=== PATIENT | female | born 1995 | race Caucasian/White ===

== ENCOUNTER 2025-04-03 14:12 | Emergency (ER) | payer BC, SELFPAY ==
[2025-04-03 14:18] VITALS: BP 119/47; PULSE 78; TEMP 36.6; O2SAT 98
[2025-04-03 14:41] LABS: Add Urine Microscopic? NO
[2025-04-03 14:45] LABS: Glucose Urine UA Negative (Normal); Nitrate Urine Negative (Negative); Specific Gravity, Urine 1.019 (1.005-1.030)
--- NOTE | 2025-04-03 14:45 | US_ITS ---
WS: [id number] US transvaginal [id number] HISTORY: llq pain, hx of ovarian torsion COMPARISON: None available. Uterus: 5.6 cm x 4.6 cm x 2.9 cm. Normal size retroflexed uterus. No fibroid or mass. Endometrium: 1.1 cm. Poorly visualized. Right ovary: Not visualized. Left ovary: 5.6 cm x 5.1 cm x 5.4 cm. Enlarged LEFT ovary. There is a complex cystic mass with lacy reticulations and septations and through transmission associated with the ovary. Very little normal ovarian tissue noted surrounding the complex cystic mass. No free fluid in the cul-de-sac. US/US transvaginal [id number] IMPRESSION: 1. Hemorrhagic cyst LEFT ovary. Hemorrhagic cyst involves nearly the entire ov don with minimal normal rim of ovarian tissue identified. Hemorrhagic cyst massiel ures 5.6 x 5.1 x 5.4 cm. No ovarian torsion identified. The visualized rim of o varian tissue contains normal vascularity. 2. No free fluid. 3. RIGHT ovary not identified.
[2025-04-03 14:46] LABS: Hematocrit 40.4 % (36-47); Hemoglobin 13.40 g/dL (11.27-16.99); Mean Corpuscular HGB Conc 33.2 g/dL (30-55); Mean Corpuscular Hemoglobin 28.2 pg (27-33); Mean Corpuscular Volume 85.1 fl (85-98); Nucleated Red Blood Cells % 0 %; Platelet Count 300 10^3/cmm (157-399); Red Blood Count 4.75 10^6/uL (3.85-5.65); White Blood Count 10.78 10^3/uL (3.29-11.43)
[2025-04-03 14:48] LABS: Charge for UA Resulting for Rev
[2025-04-03] MEDS: ondansetron 2 mg/ML SDV 2 mL 4 MG IVP (14:50)
--- NOTE | 2025-04-03 14:51 | ED_ITS ---
HPI - Abdominal Pain 2 General: Chief Complaint: Abdominal Pain Stated Complaint: abd pain Time Seen by Provider: 04/03/25 14:23 Source: patient Mode of arrival: ambulatory Limitations: no limitations History of Present Illness: Patient is a 29-year-old female who presents emergency department complaining of left lower quadrant abdominal pain for the past 3 days. Has a history of ovarian torsion, this was 10 years ago and patient states she had surgery at [facility] but did not have removal of ovary or fallopian tube and states she still has all of her female organs. She reports having the pain similar in the past with ruptured ovarian cysts, but this is much worse and much more constant. Pain has been constant for 3 days, radiates to her rectal region. Has been taking ibuprofen with no relief. Reports possibility of . She is not reporting any vaginal bleeding or discharge, no urinary symptoms, no rectal bleeding, no vomiting but does feel nauseous. No syncope, lightheadedness, dizziness, chest pain, or shortness of breath. She states the pain is made worse with putting pressure to her left lower quadrant but when she lets go it makes the pain much worse. Vital stable at this time, though she does appear uncomfortable secondary to pain. Also reports a history of dysfunctional uterine bleeding and has seen [employer] SUPERVISOR for this, says she has been diagnosed with PCOS in the past but has been told by other doctors that she does not have this condition. MD elicited complaint: abdominal pain Pertinent past history: other (ovarian torsion) Onset (ago): day(s) (3) Pain Consistency: constant Location: LLQ Severity: severe Quality: cramping Radiation: other (rectum) Relieving factors: other (pressure on abdomen) Associated Symptoms: Reports nausea; Denies bloating, change in stool character, chills, constipation, diarrhea, dysuria, fever(s), hematochezia, hematuria and vomiting Treatments prior to arrival: NSAIDs Related Data Home Medications ?Medication ?Instructions ?Recorded ?Confirmed sertraline 100 mg tablet 100 mg PO QPM 04/03/2504/03 Previous Rx's ?Medication ?Instructions ?Recorded hydrocodone 5 mg-acetaminophen 325 1 tab PO Q8H PRN pa in #15 tabs 04/03/25 mg tablet ondansetron 4 mg disintegrating 4 mg PO TID PRN nausea and 04/03/25 tablet vomiting #30 tabs Allergies Allergy/AdvReac Type Severity Reaction Status Date / Time Sulfa (Sulfonamide Allergy Unknown Verified 04/03/25 14:22 Antibiotics) Review of Systems 2 General: Reports: 10 or more systems reviewed and unremarkable except in HPI and below Const: Denies: fever(s), chills, change in appetite, change in weight or diaphoresis ENMT: Denies: throat pain or hoarseness Card: Denies: chest pain, palpitations or lightheadedness Resp: Denies: dyspnea, productive cough or wheezing GI: Reports: abdominal pain, nausea and rectal pain; Denies: vomiting, diarrhea, constipation, bloating, change in stool character or hematochezia : Reports: irregular period; Denies: flank pain, difficulty voiding, dysuria, urinary frequency, urinary urgency, hematuria, vaginal bleeding or vaginal discharge Musc: Denies: neck pain or back pain Skin/Breast: Denies: rash or new lesions Neuro: Denies: headache(s) or dizziness Physical Exam 2 Const: COMMON NORMALS: patient oriented x3, alert and well nourished G ENERAL APPEARANCE: cooperative NUTRITIONAL APPEARANCE: obese O RIENTATION/CONSCIOUSNESS: Yes awake OTHER: nontoxic appearing, in mild distress from pain Neck/C-Spine: COMMON NORMALS: full ROM, supple and no meningeal signs Resp: COMMON NORMALS: normal respiratory effort, No retractions, No use of accessory muscles and clear to auscultation bilaterally AUSCULTATION: clear to auscultation bilaterally, no crackles, no rales, no rhonchi and no wheezes Cardio: COMMON NORMALS: regular rate, regular rhythm, No gallops present (Cardio), No clicks present (Cardio), No murmurs present (Cardio) and No rub (Cardio) RATE: regular rate RHYTHM: regular rhythm GI: COMMON NORMALS: Normal to inspection, nondistended, normoactive bowel sounds present, Soft to palpation, No hepatosplenomegaly present and no masses INSPECTION: Yes central obesity AUSCULTATION: Yes normoactive bowel sounds PALPATION: Yes Soft to palpation and Yes No hepatosplenomegaly present R ECTAL EXAM: deferred OTHER: Reproducible left lower quadrant tenderness to palpation with positive rebound tenderness : COMMON NORMALS: Yes no CVA tenderness BLADDER/KIDNEY EXAM: Yes no CVA tenderness Back/Pelvis: COMMON NORMALS: no CVA tenderness Extremity: COMMON NORMALS: normal to inspection and full ROM Neuro: COMMON NORMALS: patient oriented x3, moves all extremities, no focal motor deficits and no sensory deficits noted SENSORIUM/ORIENTATION: Yes alert MENINGEAL SIGNS: Yes no meningeal signs Psych: COMMON NORMALS: mental status grossly normal, cooperative and speech normal SPEECH: Yes normal speech Skin: COMMON NORMALS: no rashes or lesions noted GENERAL SKIN EXAM: no rashes or lesions noted Course 2 Vital Signs: Vital signs: Vital Signs Temperature 97.9 F 04/03/25 14:18 Pulse Rate 81 04/03/25 17:20 Respiratory Rate 16 04/03/25 16:40 Blood Pressure 127/72 04/03/25 17:20 Pulse Oximetry 96 04/03/25 17:20 Oxygen Delivery Me thod Room Air 04/03/25 14:18 MDM - Abdominal Pain Medical Decision Making Patient present with left lower quadrant abdominal pain for 3 days, history of ovarian torsion. Reporting nausea but no vomiting, no fevers or chills or other concerning symptoms. Vitals stable throughout ED stay, reproducible tenderness to palpation to left lower quadrant. Lab work evaluation unremarkable, transvaginal ultrasound showing hemorrhagic cyst to left ovary but there is no evidence of torsion. Her is negative. I spoke to Dr. Gaitan, [employer], who states he will see the patient in the office tomorrow. Pain controlled here with morphine, will send pain medications to pharmacy and she is given strict return precautions. Overall stable for discharge at this time. Lab Data 04/03/25 14:30 04/03/25 14:30 Labs/Radiology: Radiology Impressions Transvaginal US 04/03/25 14:45 IMPRESSION: 1. Hemorrhagic cyst LEFT ovary. Hemorrhagic cyst involves nearly the entire ovary with minimal normal rim of ovarian tissue identified. Hemorrhagic cyst measures 5.6 x 5.1 x 5.4 cm. No ovarian torsion identified. The visualized rim of ovarian tissue contains normal vascularity. 2. No free fluid. 3. RIGHT ovary not identified. Abdomen/Pelvis CT 04/03/25 15:59 IMPRESSION: 1. No acute findings in the abdomen or pelvis. 2. Left ovarian cyst measuring 4.5 x 4.9 x 5 point 4 cm. This can be better evaluated with a dedicated pelvic ultrasound if clinically warranted. 3. Mild hepatic steatosis and hepatomegaly. Laboratory Results WBC 10.78 10^3/uL (3.29-11.43) 04/03/25 14:30 RBC 4.75 10^6/uL (3.85-5.65) 04/03/25 14:30 Hgb 13.40 g/dL (11.27-16.99) 04/03/25 14:30 Hct 40.4 % (36-47) 04/03/25 14:30 MCV 85.1 fl (85-98) 04/03/25 14:30 MCH 28.2 pg (27-33) 04/03/25 14:30 MCHC 33.2 g/dL (30-55) 04/03/25 14:30 RDW 12.9 % (12.1-15.1) 04/03/25 14:30 Plt Count 300 10^3/cmm (157-399) 04/03/25 14:30 MPV 9.8 fL (7.4-10.4) 04/03/25 14:30 Neut % (Auto) 59.9 % 04/03/25 14:30 Lymph % (Auto) 31.9 % 04/03/25 14:30 [place] % (Auto) 6.3 % 04/03/25 14:30 Eos % (Auto) 1.2 % 04/03/25 14:30 Baso % (Auto) 0.3 % 04/03/25 14:30 Neut # (Auto) 6.46 10^3/uL (1.8-7.7) 04/03/25 14:30 Lymph # (Auto) 3.4 10^3/uL (0.8-4.8) 04/03/25 14:30 [place] # (Auto) 0.7 10^3/uL (0.2-0.9) 04/03/25 14:30 Eos # (Auto) 0.1 10^3/uL (0.0-0.8) 04/03/25 14:30 Baso # (Auto) 0.0 10^3/uL (0.0-0.1) 04/03/25 14:30 Nucleated RBC % (auto) 0 % 04/03/25 14:30 Nucleated RBCs # 0.0 /100WBC 04/03/25 14:30 Sodium 137 mmol/L (136-145) 04/03/25 14:30 Potassium 3.6 mmol/L (3.5-5.1) 04/03/25 14:30 Chloride 101 mmol/L (98-107) 04/03/25 14:30 Carbon Dioxide 23 mmol/L (22-29) 04/03/25 14:30 Anion Gap 16.6 (5-19) 04/03/25 14:30 BUN 18 mg/dL (6-20) 04/03/25 14:30 Creatinine 0.6 mg/dL (0.5-0.9) 04/03/25 14:30 GFR Calculation 116.6 mL/min (90-130) 04/03/25 14: Glucose 88 mg/dL (65-115) 04/03/25 14:30 Calculated Osmolality 285 mOsm/kg (285-295) 04/03/25 14:30 Calcium 9.7 mg/dL (8.5-10.5) 04/03/25 14:30 Total Bilirubin 0.3 mg/dL (0.15-1.2) 04/03/25 14:30 AST 13 U/L (0-32) 04/03/25 14:30 ALT 17 U/L (0-33) 04/03/25 14:30 Alkaline Phosphatase 60 U/L (35-105) 04/03/25 14:30 Total Protein 8.4 g/dL (6.6-8.7) 04/03/25 14:30 Albumin 4.6 g/dL (3.5-5.2) 04/03/25 14:30 Globulin 3.8 g/dL (1.3-4.6) 04/03/25 14:30 Lipase 22 U/L (13-60) 04/03/25 14:30 HCG, Qual Negative (Negative) 04/03/25 14:30 Urine Color Yellow (Yellow) 04/03/25 14:28 Urine Appearance Clear (CLEAR) 04/03/25 14: Urine pH 6.5 (5-7) 04/03/25 14:28 Ur Specific [place] 1.019 (1.005-1.030) 04/03/25 14: Urine Protein Negative (Negative) 04/03/25 14: Urine Glucose (UA) Negative (Normal) 04/03/25 14:28 Urine Ketones Negative (Negative) 04/03/25 14:28 Urine Blood Negative (Negative) 04/03/25 14:28 Urine Nitrate Negative (Negative) 04/03/25 14:28 Urine Bilirubin Negative (Negative) 04/03/25 14:28 Urine Urobilinogen 0.2 mg/dL (Negative) 04/03/25 14:28 Ur Leukocyte Esterase Negative (Negative) 04/03/25 14:28 Amorphous Sediment Not Reportable 04/03/25 14:40 All radiology interpretation(s) finalized by discharge Discharge Plan Discharge Patient Disposition: Home Clinical Impression: Hemorrhagic cyst of left ovary Condition: Stable Prescriptions: New hydrocodone-acetaminophen 5-325 mg tablet 1 tab PO Q8H PRN (Reason: pain) Qty: 15 0RF ondansetron 4 mg tablet,disintegrating 4 mg PO TID PRN (Reason: nausea and vomiting) Qty: 30 0RF No Action sertraline 100 mg tablet 100 mg PO QPM Discharge Orders: Discharge ED (Routine); Ordered 04/03/25 Ordered By: Bharat Lee Patient Instructions: Opioid Safety, Pain Management, Patient Portal & Liz Instructions Activity Restrictions/Additional Instructions: Hemorrhagic Ovarian Cyst Discharge Diagnosis: Large left hemorrhagic ovarian cyst. Disposition: Discharged with outpatient referral to obstetrics/gynecology. Summary of Hospital Course: Patient presented with acute pelvic pain. Imaging confirmed a large hemorrhagic ovarian cyst. No evidence of hemodynamic instability, peritonitis, or other indications for urgent surgical intervention. Pain controlled with oral analgesia. Discharge Instructions: - Activity: Limit strenuous activity and avoid heavy lifting for the next 1-2 weeks. Ambulate as tolerated. Sexual intercourse may be resumed when pain-free. - Pain Management: [place] (hydrocodone 5 mg/acetaminophen 325 mg) prescribed for pain. Use the lowest effective dose for the shortest duration possible. Do not exceed 4 grams acetaminophen daily. Avoid other acetaminophen-containing products. If pain is mild, consider acetaminophen or NSAIDs alone, unless contraindicated. - Warning Signs: Return to the emergency department immediately for: - Severe, worsening abdominal pain - Dizziness, lightheadedness, fainting - Signs of heavy vaginal bleeding - Fever, chills, or signs of infection - Nausea/vomiting preventing oral intake - Abdominal distension or inability to urinate - Follow-Up: Outpatient gynecology follow-up is recommended within 1-2 weeks for reassessment and discussion of ongoing management. Serial pelvic ultrasound may be considered to monitor cyst resolution, though there is no consensus on optimal frequency. - Recurrence Prevention: For patients with recurrent hemorrhagic cysts, hormonal suppression (e.g., combined oral contraceptives) may be considered in consultation with gynecology. - Special Considerations: If there is a personal or family history of bleeding disorders, further hematologic evaluation may be warranted. - Fertility: Most hemorrhagic cysts are benign and do not impact fertility. Surgical intervention may be considered for persistent, symptomatic, or very large cysts. - Medication Precautions: Avoid alcohol and sedating medications while taking [place]. Do not drive or operate heavy machinery if drowsy. Patient Education: Hemorrhagic ovarian cysts are common and typically resolve spontaneously. Conservative management is safe in the absence of hemodynamic compromise or other complications. Surgery is reserved for unstable patients or those with persistent symptoms. Contact Information: For questions or concerns, contact the gynecology clinic or return to the emergency department for urgent issues. Print Language: Vietnamese Coding Level of Care Code ED Retrieval Specialist for Gela Crowley
[2025-04-03 14:52] VITALS: RESP 18
[2025-04-03] MEDS: morphine 4 mg/mL SDV 1 mL IVP (14:52)
[2025-04-03 15:02] VITALS: BP 127/82; PULSE 81; O2SAT 98
[2025-04-03 15:05] LABS: Alanine Aminotransferase 17 U/L (0-33); Albumin Level 4.6 g/dL (3.5-5.2); Alkaline Phosphatase 60 U/L (35-105); Anion Gap 16.6 (5-19); Aspartate Amino Transferase 13 U/L (0-32); Blood Urea Nitrogen 18 mg/dL (6-20); Calcium 9.7 mg/dL (8.5-10.5); Carbon Dioxide 23 mmol/L (22-29); Chloride 101 mmol/L (98-107); Creatinine Clr Calc Pharmacy 160.5822; Globulin 3.8 g/dL (1.3-4.6); Glucose 88 mg/dL (65-115); HCG, Serum Qual Negative (Negative); Lipase 22 U/L (13-60); Osmolality Calculated 285 mOsm/kg (285-295); Potassium 3.6 mmol/L (3.5-5.1); Sodium 137 mmol/L (136-145); Total Protein 8.4 g/dL (6.6-8.7)
--- NOTE | 2025-04-03 15:59 | CTR_ITS ---
PROCEDURE INFORMATION: Exam: CT Abdomen And Pelvis With Contrast Exam date and time: 04/03/2025 4:13 PM Age: 29 years old Clinical indication: Abdominal pain; Prior surgery; Surgery date: 6+ months; Surgery type: Cyst drainage/removal; Additional info: Severe llq pain, hemorrhagic cyst TECHNIQUE: Imaging protocol: Computed tomography of the abdomen and pelvis with contrast. Radiation optimization: All CT scans at this facility use at least one of these dose optimization techniques: automated exposure control; mA and/or kV adjustment per patient size (includes targeted exams where dose is matched to clinical indication); or iterative reconstruction. Contrast material: OMNIPAQUE 350; Contrast volume: 100 ml; Contrast route: INTRAVENOUS (IV); COMPARISON: US transvaginal [id number] 04/03/2025 3:20 PM RADIATION DOSE METRICS: Total DLP (mGy-cm): 1057.33 FINDINGS: Liver: Mild hepatic steatosis and hepatomegaly. No significant focal hepatic lesions. Gallbladder and biliary ducts: Normal. No calcified stones. No ductal dilation. Pancreas: Normal. No ductal dilation. Spleen: Normal. No splenomegaly. Adrenal glands: Normal. No mass. Kidneys and ureters: No suspicious renal lesions. No hydronephrosis or nephrolithiasis. No ureteral stones. Stomach and bowel: Normal caliber of the bowel without evidence of obstruction. No focal bowel wall thickening or inflammation. Appendix: Unremarkable. Intraperitoneal space: Unremarkable. No free air. No significant fluid collection. Vasculature: Unremarkable. No abdominal aortic aneurysm. Lymph nodes: Unremarkable. No enlarged lymph nodes. Urinary bladder: Urinary bladder unremarkable. Reproductive: Uterus within normal limits. Left ovarian cyst measuring 4.5 x 4.9 x 5 point 4 cm. Bones/joints: Unremarkable. No acute fracture. Soft tissues: Unremarkable. CT/CT abdomen pelvis w con* [id number] IMPRESSION: 1. No acute findings in the abdomen or pelvis. 2. Left ovarian cyst measuring 4.5 x 4.9 x 5 point 4 cm. This can be better evaluated with a dedicated pelvic ultrasound if clinically warranted. 3. Mild hepatic steatosis and hepatomegaly.
[2025-04-03 16:07] VITALS: RESP 16
[2025-04-03] MEDS: morphine 4 mg/mL SDV 1 mL 2 MG IVP (16:07)
[2025-04-03] MEDS: iohexol 350 mg/mL 500 mL Btl (per mL) IV (16:18)
[2025-04-03 16:40] VITALS: PULSE 73; RESP 16; O2SAT 97
[2025-04-03 17:20] VITALS: BP 127/72; PULSE 81; O2SAT 96
--- NOTE | 2025-04-04 07:35 | DCPLANNER ---
messaged [facility] f/u
== END 2025-04-03 17:22 | disposition home or self-care (01) ==
PROVIDERS: Emergency Medicine; Emergency Provider Physician Assistant
DX: N83.202 Unspecified ovarian cyst, left side (principal)
CPT/HCPCS: 36415; 74177; 76830; 80053; 81003; 83690; 84703; 85025; 96374; 96375; 96376; 99285; J2270; J2405

== ENCOUNTER → 2025-04-04 11:40 | Outpatient (BNVA) | payer BC, SELFPAY | PROVIDERS: Visit Provider Obstetrics & Gynecology | DX: Z12.4 Encounter for screening for malignant neoplasm of cervix (principal) | CPT/HCPCS: 87624 ==

== ENCOUNTER 2025-04-07 18:56 | Observation (INO) | payer BC, SELFPAY ==
--- OUTSIDE RECORDS SUMMARY | 2025-04-05 18:30 | XMS_ITS | Encounter Summary ---
Author Organization [facility] Address [address] [place] [address] Care Team Providers Care Associate Professor Of Counseling Name Role Phone Robin Perla MD Primary Care Provider [phone] Reason for Visit * Reason Comments Abdominal Pain Patient states abdom inal pain x 5 days. States she was supposed to have a surgery in [place] but was unable to have surgery today due to hospital being under staffed was told to go to [facility] in [place]. * Auth/Cert (Routine) Specialty Diagnoses / Procedures Referred By Jan ruggiero Referred To Contact Emergency Medicine [facility] Emergency Department [address] [place] [id number] Phone: tel: fax: Referral ID Status Reason Start Date Expiration Date Visits Re quested Visits Authorized [id number] 1 1 Encounter Details Date Type Department Care Team (Late st Contact Info) Description 04/05/2025 6:30 PM CDT - 04/05/2025 9:[address] [facility] Emergency Department [address] [place] [phone] Laureano Warren MD [address] [place] [address] Hemorrhagic cyst of left ovary (Primary Dx) Discharge Disposition: Home or Self Care Social History Tobacco Use Types Packs/Day Years Used Date Smoking Tobacco: Never Smokeless Tobacco: Never Alcohol Use Standard Drinks/Week Comments No 0 (1 standard drink = 0.6 oz pur e alcohol) Food Insecurity Answer Date Recorded Do you find you are eating l ess than you should because you can t pay for food? No 04/05/2025 Transportation Needs Answer Date Record ed Have you gone without health care because you didn t have a way to get there? 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 No 2024 Housing Stability Answer Date Recorded Do you worry you won t have a steady place to sleep or struggle to pay rent or mortgage? No 04/05/2025 Utility Needs Answer Date Recorded Do you have difficulty payin g for utility costs (electric, water or gas bills)? No 04/05/2025 Medication Needs Answer Date Recorded Have you skipped taking medi cation due to cost or worry you can t afford new medications? No 04/05/2025 Feeling Safe Answer Date Recorded Are you in a relationship wi th someone who hurts you emotionally and/or physically? 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 Gender Identity Not on file Sexual Orientation Not on file documented as of this encounter Last Filed Vital Signs Vital Sign Reading Time Taken Comments Blood Pressure 132/88 04/05/2025 4:13 PM CDT Pulse 84 04/05/2025 4:13 PM CDT Temperature 36.6 C (97.8 F) 04/05/2025 4:13 PM CDT Respiratory Rate 20 04/05/2025 4:13 PM CDT Oxygen Saturation 98% 04/05/2025 4:13 PM CDT Inhaled Oxygen Concentration - - Weight 112 kg (247 lb) 04/05/2025 4:13 PM CDT Height 157.5 cm (5' 2 ) 04/05/2025 4:13 PM CDT Body Mass Index 45.18 04/05/2025 4:13 PM CDT documented in this encounter Discharge Instructions * Discharge Instructions* Laureano Warren MD - 04/05/2025 9:05 PM CDT Things to remember after leaving the Emergency Department Keep your follow-up appointment on Tuesday with your rn physician office for surgery. Stop hydrocodone. Start morphine. Return if any concerns, uncontrolled pain, fevers, passing out etc. Return to the Emergency Department if your symptoms worsen, if they fail to improve as expected or if you have any concerns and can not reach your outpatient health care provider. Read all of your discharge instructions carefully. The Emergency Department The Emergency Department is intended to evaluate individuals that require emergent care to stabilize serious traumatic injuries or potentially life threatening illness. It is not intended to be global or definitive health care, therefore follow up is very important. Follow Up: Call the physician indicated on this discharge paperwork for a timely follow up appointment. If you have a Primary Care Doctor, call them right away to schedule a follow up appointment. If you do not already have a primary care provider, call [facility] at [phone] for a physician accepting new patients. You may also want to call [facility] ([phone] or [phone]) or [facility] ([phone]). Pharmacies: There are three local 24 hour [facility] pharmacies for prescriptions: 1) [address] [facility] (by the [place]) 2) [address] [facility] ([phone] 3) [address] [facility] outpatient pharmacy is open M-F until 9 pm and until 4 pm on weekends. Thank you for choosing [facility] for your care today and I hope that you feel better soon. Laureano Warren MD documented in this encounter Medications at Time of Discharge morphine (MS IR) 15 mg tabletIndication s:Hemorrhagic cyst of left ovary Take 0.5-1 Tablets (7.5-15 mg) by mouth every 6 hours as needed for Pain. Max Daily Amount: 60 mg 22 Tablet 04/05/2025 ondansetron (ZOFRAN ODT) 4 mg Tablet, Rapid Dissolve Take 1 Tablet (4 mg) by mouth every 8 hours as needed for Nausea/Emesis. Dissolve tablet on top of tongue, then swallow with saliva. 15 Tablet 04/05/2025 naloxone (NARCAN) 4 mg/spray [place], Non-Aerosol EMERGENCY USE ONLY: Administer 1 spray (4 mg) in one nostril one time. May repeat in alternating nostrils every 2-3 min until responsive or EMS arrives. 2 Each 3 04/05/2025 sertraline (ZOLOFT) 100 mg tabletIndication s:RISHABH (generalized anxiety disorder) TAKE 1 TABLET DAILY 100 Tablet 1 10/15/2024 documented as of this encounter ED Notes * Laureano Bee PA - 04/05/2025 4:49 PM CDT Vitals: 04/05/25 1613 BP: 132/88 Pulse: 84 Resp: 20 Temp: 97.8 ??F (36.6 ??C) SpO2: 98% Patient is a 29-year-old female who presents to the Emergency Department for evaluation of left lower quadrant abdominal pain. Patient states that her symptoms started approximately 1 week ago and has continued to grow since onset. Patient reports that she was evaluated in [place] and did get an ultrasound that showed a large hemorrhagic cyst. Patient reports that since being discharged her pain has now worsened. Patient is concerned that she might have ovarian torsion as she did have rightovarian torsion in the past. She currently rates her pain as a 8 out of 10 in severity that she describes as a sharp/stabbing-like sensation. Exam: Constitutional: Alert and oriented with no apparent distress. Respiratory: No obvious signs of respiratory distress. Neuro: Alert and oriented X3. Psych: Cooperative. Normal mood and affect. Pain 8/10 A medical screening exam was initiated in our triage area tailored to the patient's chief complaint. Focused diagnostics and therapies have been initiated. ER staff will continue and expand as appropriate to help identify any life or limb threatening conditions while awaiting an exam room in the main area of the ED. Continued care, evaluation and management of this patient will be performed throughout their stay. I advised patient to inform front end alignment specialist nurse of any change in symptoms. The patient's evaluation and anticipated ongoing care plan was discussed in detail with them to make sure theyare aware of what to expect during their stay. I cannot adequately treat/monitor this patient from triage and I do recommend being evaluated in a ER room as soon as possible. documented in this encounter Miscellaneous Notes * Gen AI ELIZABETH - GENERATIVE AI HANDOFF NOTE - 04/05/2025 10:45 PM CDT ## ER_course: ## # DIAGNOSIS: Large hemorrhagic ovarian cyst. The patient, a 29-year-old female, presented with left lower quadrant abdominal pain rated 8 out of 10, described as sharp and stabbing. She has a history of right ovarian torsion with oophorectomy and was previously diagnosed with a large hemorrhagic ovarian cyst at another facility. Surgery was scheduled but not performed due to staffing issues. The patient reported worsening pain and some urinary incontinence. # During the ER visit, the following abnormalities were noted: Abdominal distension and tenderness in the left lower quadrant without guarding or rebound. Labs showed a white blood cell count of 10.5, indicating possible inflammation or infection. Urinalysis was mostly unremarkable except for trace protein. An ultrasound was ordered but results are not provided. # The patient was treated with HYDROmorphone (DILAUDID) for pain management. ## Follow_up_orders: ## # The patient should follow up with her primary care provider or rn physician office for further evaluation and management of the ovarian cyst. # An ultrasound was ordered in the ER, but results are pending at discharge. # The patient should be advised to seek immediate medical attention if symptoms worsen or if new symptoms develop. ## Home_Situation: ## # No specific factors impairing follow-up care were noted in the ER documentation. documented in this encounter Plan of Treatment Not on file documented as of this encounter Procedures Procedure Name Priority Date/Time Associated Diagnosis Comments US PELVIC TRANSVAGINAL + DOPPLER Stat 04/05/2025 8:18 PM CDT EXTRA TUBE (URINE FRYE) Stat 04/05/2025 5:42 PM CDT URINALYSIS W/REFLEX MICROSCOPIC Stat 04/05/2025 5:42 PM CDT HCG QUALITATIVE, URINE Stat 5:42 PM CDT CBC WITH DIFFERENTIAL Stat 04/05/2025 5:41 PM CDT LIPASE Stat 04/05/2025 5:41 PM CDT COMPREHENSIVE METABOLIC PANEL Stat 04/05/2025 5:41 PM CDT documented in this encounter Results * US PELVIC TRANSVAGINAL + DOPPLER (04/05/2025 8:18 PM CDT) Anatomical Region Laterality Modality Pelvis Ultrasound 04/05/2025 8:18 PM CDT Impressions 04/05/2025 8:28 PM CDT IMPRESSION: Please see below. Exam: US PELVIC TRANSVAGINAL + DOPPLER Date/Time of Exam: 04/05/2025 8:18 PM Reason For Exam: Abdominal Pain LLQ. Diagnosis: See Reason for Exam. Comparison: None. FINDINGS: Uterus: The uterus measures 3.7 x 4.5 x 6.3 cm. The endometrial thickness measures 11.0 mm. The myometrium is heterogeneous in echogenicity. No focal myometrial lesions are identified. Free Fluid: Trace free fluid seen within the posterior and inferior pole. Right Ovary: The right ovary measures 1.7 x 1.2 x 1.6 cm with a volume of 1.6 ml ml. Small cystic structures seen within the anterior right adnexa measuring 9 x 7 x 9 mm. Normal Doppler flow. Left Ovary: The left ovary measures 5.0 x 5.0 x 4.7 cm with a volume of 60.5 ml ml. Hemorrhagic cyst measuring 4.4 x 4.7 x 4.7 cm. Normal Doppler flow. IMPRESSION: Hemorrhagic cyst seen within the left ovary measuring up to 4.7 cm. Otherwise unremarkable exam. Narrative Procedure Note Wilver Johnson MD - 04/05/2025 IMPRESSION: Please see below. Exam: US PELVIC TRANSVAGINAL + DOPPLER Date/Time of Exam: 04/05/2025 8:18 PM Reason For Exam: Abdominal Pain LLQ. Diagnosis: See Reason for Exam. Comparison: None. FINDINGS: Uterus: The uterus measures 3.7 x 4.5 x 6.3 cm. The endometrial thickness measures 11.0 mm. The myometrium is heterogeneous in echogenicity. No focal myometrial lesions are identified. Free Fluid: Trace free fluid seen within the posterior and inferior pole. Right Ovary: The right ovary measures 1.7 x 1.2 x 1.6 cm with a volume of 1.6 ml ml. Small cystic structures seen within the anterior right adnexa measuring 9 x 7 x 9 mm. Normal Doppler flow. Left Ovary: The left ovary measures 5.0 x 5.0 x 4.7 cm with a volume of 60.5 ml ml. Hemorrhagic cyst measuring 4.4 x 4.7 x 4.7 cm. Normal Doppler flow. IMPRESSION: Hemorrhagic cyst seen within the left ovary measuring up to 4.7 cm. Otherwise unremarkable exam. Laureano CARRASCO US ORDERABLES Final Result * EXTRA TUBE (URINE FRYE) (04/05/2025 5:42 PM CDT) Urine URINE SPECIMEN OBTAINED BY CLEAN CATCH PROCEDURE / Unknown Collection / Unknown 04/05/2025 5:42 PM CDT 04/05/2025 5:48 PM CDT Laureano CARRASCO URINE ORDERABLES Final Result Performing Organization Address [facility] Co de Phone Number [facility] CLIA # [id number] [address] [place] [address] * HCG QUALITATIVE, URINE (04/05/2025 5:42 PM CDT) HCG QUAL URINE Negative Negative 04/05/2025 5:56 PM CDT [facility] [employer] [facility] COLOR UA Yellow Pale to Dark Yellow 04/05/2025 5:56 PM CDT [facility] CLARITY UA Clear Clear 04/05/2025 5:56 PM CDT [facility] Urine URINE SPECIMEN OBTAINED BY CLEAN CATCH PROCEDURE / Unknown Collection / Unknown 04/05/2025 5:42 PM CDT 04/05/2025 5:48 PM CDT Laureano Bee PA URINE ORDERABLES Final Result Performing Organization Address City/[facility]/ZIP Co de Phone Number [facility] [employer] [facility] CLIA # [id number] [address] [place], [place] [address] * (ABNORMAL) URINALYSIS WITH REFLEX MICROSCOPIC (04/05/2025 5:42 PM CDT) COLOR UA Yellow Pale to Dark Yellow 04/05/2025 5:53 PM CDT [facility] CLARITY UA Clear Clear 04/05/2025 5:53 PM CDT [facility] SPECIFIC GRAVITY UA 1.034 1.003 - 1.035 04/05/2025 5:53 PM CDT [facility] PH UA 6.0 5.0 - 8.0 04/05/2025 5:53 PM CDT [facility] LEUKOCYTE ESTERASE UA Negative Negative 04/05/2025 5:53 PM CDT [facility] NITRITE UA Negative Negative 04/05/2025 5:53 PM CDT [facility] PROTEIN UA Trace(A) Negative 04/05/2025 5:53 PM CDT [facility] GLUCOSE UA Negative Negative 04/05/2025 5:53 PM CDT [facility] KETONES UA Negative Negative 04/05/2025 5:53 PM CDT [facility] UROBILINOGEN UA <2.0 <2.0 mg/dL 5:53 PM CDT [facility] BILIRUBIN UA Negative Negative 04/05/2025 5:53 PM CDT [facility] BLOOD UA Negative Negative 04/05/2025 5:53 PM CDT [facility] Urine URINE SPECIMEN OBTAINED BY CLEAN CATCH PROCEDURE / Unknown Collection / Unknown 04/05/2025 5:42 PM CDT 04/05/2025 5:48 PM CDT us Laureano CARRASCO URINE ORDERABLES Final Result [facility] CLIA # [id number] [address] [address] * LIPASE (04/05/2025 5:41 PM CDT) Pathologist [facility] LIPASE 28 13 - 60 U/L 04/05/2025 6:33 PM CDT [facility] Blood Venipuncture / Unknown 04/05/2025 5:41 PM CDT 04/05/2025 5:49 PM CDT Laureano CARRASCO CHEMISTRY ORDERABLES Final Re sult [facility] CLIA # [id number] [address] [place] [address] * COMPREHENSIVE METABOLIC PANEL (04/05/2025 5:41 PM CDT) [facility] SODIUM 137 136 - 145 mmol/L 04/05/2025 6:33 PM CDT [facility] POTASSIUM 3.7 3.5 - 5.1 mmol/L 04/05/2025 6:33 PM CDT [facility] CHLORIDE 101 98 - 107 mmol/L 04/05/2025 6:33 PM CDT [facility] CO2 23 22 - 29 mmol/L 04/05/2025 6:33 PM CDT [facility] CALCIUM 9.2 8.6 - 10.0 mg/dL 04/05/2025 6:33 PM CDT [facility] BUN 14 6 - 20 mg/dL 04/05/2025 6:33 PM CDT [facility] CREATININE 0.72 0.51 - 0.95 mg/dL 04/05/2025 6:33 PM CDT [facility] GLUCOSE 93 74 - 99 mg/dL 04/05/2025 6:33 PM CDT [facility] TOTAL PROTEIN 7.9 6.4 - 8.3 g/dL 04/05/2025 6:33 PM CDT [facility] ALBUMIN 4.4 3.5 - 5.2 g/dL 04/05/2025 6:33 PM CDT [facility] BILIRUBIN TOTAL 0.6 0.0 - 1.0 mg/dL 04/05/2025 6:33 PM CDT [facility] ALKALINE PHOSPHATASE 56 35 - 104 U/L 04/05/2025 6:33 PM CDT [facility] AST 16 10 - 35 U/L 04/05/2025 6:33 PM CDT [facility] ALT 17 <=35 U/L 04/05/2025 6:33 PM CDT [facility] GFR >60 >=60 mL/min/1.7 3 sq meter 04/05/2025 6:33 PM CDT [facility] Comment:eGFR calculated with 2020 CKD-EPI equation. Vegetarian diet, extremely high or low muscle mass, and may affect results. Cystatin C with Glomerular Filtration Rate is a suitable alternative for these patients. ANION GAP 13 9 - 20 mmol/L 04/05/2025 6:33 PM CDT [facility] Blood Venipuncture / Unknown 04/05/2025 5:41 PM CDT 04/05/2025 5:49 PM CDT us Laureano CARRASCO CHEMISTRY ORDERABLES [id number] [address] [place] [id number] * (ABNORMAL) CBC WITH DIFFERENTIAL (04/05/2025 5:41 PM CDT) WBC 10.5 4.5 - 11.0 K/uL 04/05/2025 5:57 PM CDT [facility] RBC 4.78 4.20 - 5.40 M/uL 04/05/2025 5:57 PM CDT [facility] HEMOGLOBIN 13.6 12.0 - 16.0 g/dL 04/05/2025 5:57 PM CDT [facility] HEMATOCRIT 41.0 36.0 - 46.0 % 04/05/2025 5:57 PM CDT [facility] MCV 85.8 84.0 - 103.0 fL 04/05/2025 5:57 PM CDT [facility] MCH 28.5 27.0 - 34.0 pg 04/05/2025 5:57 PM CDT [facility] [employer] [facility] MCHC 33.2 30.0 - 35.0 g/dL 04/05/2025 5:57 PM CDT [facility] PLATELETS 267 140 - 440 K/uL 04/05/2025 5:57 PM CDT [facility] [employer] [facility] MPV 9.7 8.9 - 12.8 fL 04/05/2025 5:57 PM CDT [facility] [employer] [facility] RDW 13.0 11.0 - 14.5 % 04/05/2025 5:57 PM [facility] [employer] [facility] RDW-STDEV 40.6 37.0 - 54.0 fL 04/05/2025 5:57 PM CDT [facility] [employer] [facility] NEUTROPHILS 65 42 - 75 % 04/05/2025 5:57 PM CDT [facility] [employer] [facility] LYMPHOCYTES 27 24 - 44 % 04/05/2025 5:57 PM CDT [facility] [employer] [facility] MONOCYTES 7 2 - 10 % 04/05/2025 5:57 PM CDT [facility] [employer] [facility] EOSINOPHILS 1 0 - 7 % 04/05/2025 5:57 PM CDT [facility] [employer] [facility] BASOPHILS 0 0 - 1 % 04/05/2025 5:57 PM CDT [facility] IMMATURE GRANULOCYTES 0 0 - 2 % 04/05/2025 5:57 PM CDT [facility] NEUTROPHIL ABSOLUTE 6.85 2.00 - 8.00 K/uL 04/05/2025 5:57 PM CDT [facility] LYMPHOCYTE ABSOLUTE 2.85 1.20 - 4.00 K/uL 04/05/2025 5:57 PM CDT [facility] [employer] [facility] MONOCYTE ABSOLUTE 0.68(H) 0.10 - 0.60 K/uL 04/05/2025 5:57 PM CDT [facility] EOSINOPHIL ABSOLUTE 0.10 0.00 - 0.70 K/uL 04/05/2025 5:57 PM CDT [facility] BASOPHILS ABSOLUTE 0.03 0.00 - 0.20 K/uL 04/05/2025 5:57 PM CDT [facility] IMMATURE GRANULOCYTES ABSOLUTE 0.02 0.00 - 0.10 K/uL 04/05/2025 5:57 PM CDT [facility] SMEAR REVIEWED: NA - Not Applicable 04/05/2025 5:57 PM CDT [facility] Blood Venipuncture / Unknown 04/05/2025 5:41 PM CDT 04/05/2025 5:49 PM CDT Laureano CARRASCO HEMATOLOGY ORDERABLES Final R esult [facility] CLIA # [id number] [address] [place] [id number] documented in this encounter Visit Diagnoses Diagnosis Hemorrhagic cyst of left ovary- Primary documented in this encounter Administered Medications Inactive Administered Medications - up to 3 most recent administrations Medication Order MAR Action Action Date Dose Rate Site HYDROmorphone (PF) (DILAUDID) injection 0.5 mg 0.5 mg, IV, ONE TIME ONLY, 1 dose, On Tue04/05/25 at 2045, Stat Given 04/05/2025 8:44 PM CDT 0.5 mg HYDROmorphone (PF) (DILAUDID) injection 1 mg 1 mg, IV, ONE TIME ONLY, 1 dose, On Tue04/05/25 at 1900, Routine Given 04/05/2025 6:59 PM CDT 1 mg ondansetron (ZOFRAN) 4 mg/2 mL injection 4 mg 4 mg, IV, ONE TIME ONLY, 1 dose, On Tue04/05/25 at 2045, Stat Given-See Override 04/05/2025 8:45 PM CDT 4 mg documented in this encounter Active and Recently Administered Medications Times are shown in CDT. Scheduled Medication Order 04/03/2025 04/04/2025 04/05/2025 HYDROmorphone (PF) (DILAUDID) injection 0.5 mg (COMPLETED) 0.5 mg, IV, ONE TIME ONLY, 1 dose, On Tue04/05/25 at 2045, Stat 2044 (Given - Provid er: Lorna Zarate RN) HYDROmorphone (PF) (DILAUDID) injection 1 mg (COMPLETED) 1 mg, IV, ONE TIME ONLY, 1 dose, On Tue04/05/25 at 1900, Routine 1859 (Given - Provid er: Lorna Zarate RN) ondansetron (ZOFRAN) 4 mg/2 mL injection 4 mg (COMPLETED) 4 mg, IV, ONE TIME ONLY, 1 dose, On Tue04/05/25 at 2045, Stat 204 (Given-See Over ride - Provider: Lorna Zarate RN) documented in this encounter Additional Health Concerns Assessment Noted Time PHQ-9 Depression Total Score: 2 11/25/19 24 3:00 PM CDT documented as of this encounter Care Teams Associate Professor Of Counseling Relationship Specialty Start Date End Date Robin Perla MD [address] [facility] [address] [place] [address] PCP - General Family Practice 11/25/23 documented as of this encounter
[2025-04-07] VITALS (8 sets, daily range): BP systolic 138–158; BP diastolic 62–102; PULSE 79–86; RESP 16–17; TEMP 36.7–36.8; O2SAT 95–99; BMI 43.2
--- OUTSIDE RECORDS SUMMARY | 2025-04-07 19:01 | XMS_ITS | Clinical Summary ---
Author Organization [facility] Address [address] [place]: Epic Prelude ADT [place] [address] Care Team Providers Care Freight Car Loader Name Role Phone Robin Perla MD Primary Care Provider [phone] Allergies Active Allergy Reactions Criticality Noted Date Comments Sulfate Salt Hives High 11/16/2016 Medications sertraline (ZOLOFT) 100 mg tabletIndicatio ns:RISHABH (generalized anxiety disorder) TAKE 1 TABLET DAILY 100 Tablet 1 5 Active morphine (MS IR) 15 mg tabletIndicatio ns:Hemorrhagic cyst of left ovary Take 0.5-1 Tablets (7.5-15 mg) by mouth every 6 hours as needed for Pain. Max Daily Amount: 60 mg 22 Tablet 5 Active ondansetron (ZOFRAN ODT) 4 mg Tablet, Rapid Dissolve Take 1 Tablet (4 mg) by mouth every 8 hours as needed for Nausea/Emesis. Dissolve tablet on top of tongue, then swallow with saliva. 15 Tablet 5 Active naloxone (NARCAN) 4 mg/spray [place], Non-Aerosol EMERGENCY USE ONLY: Administer 1 spray (4 mg) in one nostril one time. May repeat in alternating nostrils every 2-3 min until responsive or EMS arrives. 2 Each 3 5 Active Active Problems Problem Noted Date Diagnosed Date RISHABH (generalized anxiety disorder) 11/28/2023 Mood swings 11/28/2023 PCOS (polycystic ovarian syndrome) 11/25/2023 Irregular periods 11/25/2023 Encounters Date Type Department Care Team Description 04/05/2025 6:30 PM CDT - 04/05/2025 9:49 PM CDT Emergency [facility] Emergency Department [address] [place] [address] Laureano Warren MD Hemorrhagic cyst of left ovary (Primary Dx) Discharge Disposition: Home or Self Care 04/05/2025 Travel 04/02/2025 External Device Data [place] ABSTRACTION Provider, Abstract 02/06/2025 External Device Data [place] ABSTRACTION Provider, Abstract 02/05/2025 External Device Data [place] ABSTRACTION Provider, Abstract 01/16/2025 External Device Data [place] ABSTRACTION Provider, Abstract 01/15/2025 External Device Data [place] ABSTRACTION Provider, Abstract from Last 3 Months Family History Medical History Relation Name Comments Heart Disease Father Father passsed of myocardial infarction Diabetes Maternal Grandmother Diabetes Mother Relation Name Status Comments Father Maternal Grandmother Alive Mother Alive Social History Tobacco Use Types Packs/Day Years Used Date Smoking Tobacco: Never Smokeless Tobacco: Never Tobacco Cessation:Counseling Given: Not Answered Alcohol Use Standard Drinks/Week Comments No 0 [...] worry about transportation for future doctor visits, pick up driver medication, etc.? 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 Gender Identity Not on file Sexual Orientation Not on file Last Filed Vital Signs Vital Sign Reading [...] Mass Index 45.18 04/05/2025 4:13 PM CDT Plan of Treatment Health Maintenance Due Date Last Done Comments DTAP/TDAP/TD VACCINES (1 - Tdap) 2012 HEPATITIS B VACCINES (1 of 3 - 19+ 3-dose series) 2012 HPV VACCINES (1 - 3-dose SCDM series) 2020 HPV/Cotest (21-29) 11/16/2021 11/16/2016 CERVICAL CANCER SCREENING 2023 HPV/Cotest (30-65) 2023 11/16/2016 PAP SMEAR 2023 11/16/2016, 11/16/2016 Preventative Visit- Commercial 07/04/2024 11/16/2016 INFLUENZA VACCINE (#1) 2025 Procedures Procedure Name Priority Date/Time Associated Diagnosis Comments US PELVIC TRANSVAGINAL + DOPPLER Stat 04/05/2025 8:18 PM CDT EXTRA TUBE (URINE FRYE) Stat 04/05/2025 5:42 PM CDT HCG QUALITATIVE, URINE Stat 5:42 PM CDT URINALYSIS W/REFLEX MICROSCOPIC Stat 04/05/2025 5:42 PM CDT LIPASE Stat 04/05/2025 5:41 PM CDT COMPREHENSIVE METABOLIC PANEL Stat 04/05/2025 5:41 PM CDT CBC WITH DIFFERENTIAL Stat 04/05/2025 5:41 PM CDT CERV/VAG CYTO SCREEN PAP RLFX HPV Routine 11/16/2016 3:05 PM CDT from Last 3 Months or Most Recently Relevant to Health Maintenance Results * US PELVIC TRANSVAGINAL + DOPPLER [...] up to 4.7 cm. Otherwise unremarkable exam. Laurenao CARRASCO US ORDERABLES Final Result * EXTRA TUBE (URINE FRYE) (04/05/2025 5:42 PM CDT) Urine URINE SPECIMEN OBTAINED BY CLEAN CATCH PROCEDURE / Unknown Collection / Unknown 04/05/2025 5:42 PM CDT 04/05/2025 5:48 PM CDT Laureano CARRASCO URINE ORDERABLES Final Result Performing Organization Address City/State/[facility] Co de Phone Number [facility] CLIA # [id number] [address] [place] [phone] * (ABNORMAL) URINALYSIS WITH REFLEX MICROSCOPIC (04/05/2025 5:42 PM CDT) COLOR UA Yellow Pale to Dark Yellow 04/05/2025 5:53 PM CDT [facility] CLARITY UA Clear Clear 04/05/2025 5:53 PM CDT [facility] SPECIFIC GRAVITY UA 1.034 1.003 - 1.035 04/05/2025 5:53 PM CDT [facility] PH UA 6.0 5.0 - 8.0 04/05/2025 5:53 PM CDT [facility] LEUKOCYTE ESTERASE UA Negative Negative 04/05/2025 5:53 PM CDT [facility] NITRITE UA Negative Negative 04/05/2025 5:53 PM CDT [facility] PROTEIN UA Trace(A) Negative 04/05/2025 5:53 PM CDT [facility] GLUCOSE UA Negative Negative 04/05/2025 5:53 PM CDT [facility] KETONES UA Negative Negative 04/05/2025 5:53 PM CDT [facility] UROBILINOGEN UA <2.0 <2.0 mg/dL 5:53 PM CDT [facility] BILIRUBIN UA Negative Negative 04/05/2025 5:53 PM CDT [facility] BLOOD UA Negative Negative 04/05/2025 5:53 PM CDT [facility] Urine URINE SPECIMEN OBTAINED BY CLEAN CATCH PROCEDURE / Unknown Collection / Unknown 04/05/2025 5:42 PM CDT 04/05/2025 5:48 PM CDT Deandre White PA URINE ORDERABLES Final Result Performing Organization Address [facility] de Phone Number [facility] CLIA # [id number] [address] [address] * HCG QUALITATIVE, URINE (04/05/2025 5:42 PM CDT) HCG QUAL URINE Negative Negative 04/05/2025 5:56 PM CDT [facility] COLOR UA Yellow Pale to Dark Yellow 04/05/2025 5:56 PM CDT [facility] CLARITY UA Clear Clear 04/05/2025 5:56 PM CDT [facility] Urine URINE SPECIMEN OBTAINED BY CLEAN CATCH PROCEDURE / Unknown Collection / Unknown 04/05/2025 5:42 PM CDT 04/05/2025 5:48 PM CDT us Deandre White PA URINE ORDERABLES Final Result Performing Organization Address [facility] Co de Phone Number [facility] CLIA # [id number] [id number] [place] [address] * (ABNORMAL) CBC WITH DIFFERENTIAL (04/05/2025 5:41 PM CDT) [facility] WBC 10.5 4.5 - 11.0 K/uL 04/05/2025 5:57 PM CDT [facility] [employer] [facility] RBC 4.78 4.20 - 5.40 M/uL 04/05/2025 5:57 PM CDT [facility] HEMOGLOBIN 13.6 12.0 - 16.0 g/dL 04/05/2025 5:57 PM CDT [facility] [employer] [facility] HEMATOCRIT 41.0 36.0 - 46.0 % 04/05/2025 5:57 PM CDT [facility] MCV 85.8 84.0 - 103.0 fL 04/05/2025 5:57 PM CDT [facility] [employer] [facility] MCH 28.5 27.0 - 34.0 pg 04/05/2025 5:57 PM CDT [facility] MCHC 33.2 30.0 - 35.0 g/dL 04/05/2025 5:57 PM CDT [facility] PLATELETS 267 140 - 440 K/uL 04/05/2025 5:57 PM CDT [facility] MPV 9.7 8.9 - 12.8 fL 04/05/2025 5:57 PM CDT [facility] RDW 13.0 11.0 - 14.5 % 04/05/2025 5:57 PM CDT [facility] [employer] [facility] RDW-STDEV 40.6 37.0 - 54.0 fL 04/05/2025 5:57 PM CDT [facility] [employer] [facility] NEUTROPHILS 65 42 - 75 % 04/05/2025 5:57 PM CDT [facility] LYMPHOCYTES 27 24 - 44 % 04/05/2025 5:57 PM CDT [facility] [employer] [facility] MONOCYTES 7 2 - 10 % 04/05/2025 5:57 PM CDT [facility] [employer] [facility] EOSINOPHILS 1 0 - 7 % 04/05/2025 5:57 PM CDT [facility] [employer] [facility] BASOPHILS 0 0 - 1 % 04/05/2025 5:57 PM CDT [facility] IMMATURE GRANULOCYTES 0 0 - 2 % 04/05/2025 5:57 PM CDT [facility] NEUTROPHIL ABSOLUTE 6.85 2.00 - 8.00 K/uL 04/05/2025 5:57 PM CDT [facility] LYMPHOCYTE ABSOLUTE 2.85 1.20 - 4.00 K/uL 04/05/2025 5:57 PM CDT [facility] MONOCYTE ABSOLUTE 0.68(H) 0.10 - 0.60 K/uL 04/05/2025 5:57 PM CDT [facility] EOSINOPHIL ABSOLUTE 0.10 0.00 - 0.70 K/uL 04/05/2025 5:57 PM CDT [facility] BASOPHILS ABSOLUTE 0.03 0.00 - 0.20 K/uL 04/05/2025 5:57 PM CDT [facility] IMMATURE GRANULOCYTES ABSOLUTE 0.02 0.00 - 0.10 K/uL 04/05/2025 5:57 PM CDT [facility] SMEAR REVIEWED: NA - Not Applicable 04/05/2025 5:57 PM CDT [facility] Blood Venipuncture / Unknown 04/05/2025 5:41 PM CDT 04/05/2025 5:49 PM CDT us Laureano CARRASCO HEMATOLOGY ORDERABLES Final R esult [facility] CLIA # [id number] [address] [place] [address] [place] [address] * LIPASE (04/05/2025 5:41 PM CDT) LIPASE 28 13 - 60 U/L 04/05/2025 6:33 PM CDT [facility] Blood Venipuncture / Unknown 04/05/2025 5:41 PM CDT 04/05/2025 5:49 PM CDT us Laureano CARRASCO CHEMISTRY ORDERABLES Final Re sult [facility] BUTCH # [id number] [address] [facility] [address] [place] [address] * COMPREHENSIVE METABOLIC PANEL (04/05/2025 5:41 PM CDT) [facility] SODIUM 137 136 - 145 mmol/L 04/05/2025 6:33 PM CDT [facility] POTASSIUM 3.7 3.5 - 5.1 mmol/L 04/05/2025 6:33 PM CDT [facility] CHLORIDE 101 98 - 107 mmol/L 04/05/2025 6:33 PM CDT [facility] CO2 23 22 - 29 mmol/L 04/05/2025 6:33 PM CDT [facility] CALCIUM 9.2 8.6 - 10.0 mg/dL 04/05/2025 6:33 PM CDT [facility] BUN 14 6 - 20 mg/dL 04/05/2025 6:33 PM CDT [facility] CREATININE 0.72 0.51 - 0.95 mg/dL 04/05/2025 6:33 PM CDT [facility] GLUCOSE 93 74 - 99 mg/dL 04/05/2025 6:33 PM CDT [facility] TOTAL PROTEIN 7.9 6.4 - 8.3 g/dL 04/05/2025 6:33 PM T [facility] ALBUMIN 4.4 3.5 - 5.2 g/dL 04/05/2025 6:33 PM CDT [facility] BILIRUBIN TOTAL 0.6 0.0 - 1.0 mg/dL 04/05/2025 6:33 PM CDT [facility] ALKALINE PHOSPHATASE 56 35 - 104 U/L 04/05/2025 6:33 PM CDT [facility] AST 16 10 - 35 U/L 04/05/2025 6:33 PM CDT [facility] ALT 17 <=35 U/L 04/05/2025 6:33 PM CDT [facility] GFR >60 >=60 mL/min/1.7 3 sq meter 04/05/2025 6:33 PM CDT [facility] Comment:eGFR calculated with 2020 CKD-EPI equation. Vegetarian diet, extremely high or low muscle mass, and may affect results. Cystatin C with Glomerular Filtration Rate is a suitable alternative for these patients. ANION GAP 13 9 - 20 mmol/L 04/05/2025 6:33 PM CDT [facility] Blood Venipuncture / Unknown 04/05/2025 5:41 PM CDT 04/05/2025 5:49 PM CDT us Laureano CARRASCO CHEMISTRY ORDERABLES Final Re sult [facility] CLIA # [id number] [address] [place] [address] * CERV/VAG CYTO SCREEN PAP RLFX HPV (11/16/2016 3:05 PM CDT) Pathologist [facility] CLINICAL INFORMATION SEE COMMENT 11/19/2016 11:20 AM CDT [facility] Comment:Information not prov ided LAST MENSTRUAL PERIOD SEE COMMENT 11/19/2016 11:20 AM CDT [facility] Comment:INFORMATION NOT PROV IDED PREV PAP: SEE COMMENT 11/19/2016 11:20 AM CDT [facility] Comment:INFORMATION NOT PROV IDED PREV BX: SEE COMMENT 11/19/2016 11:20 AM CDT [facility] Comment:INFORMATION NOT PROV IDED SOURCE Endocervix 11/19/2016 11:20 AM CDT [facility] ADEQUACY: SEE COMMENT 11/19/2016 11:20 AM CDT [facility] Comment: Satisfactory for evaluation. Endocervical/transformation zone component present. Age and/or menstrual status not provided PAP INTERP SEE COMMENT 11/19/2016 11:20 AM CDT [facility] Comment:Negative for intraep ithelial lesion or malignancy. COMMENT SEE COMMENT 11/19/2016 11:20 AM CDT [facility] Comment: This Pap test has been evaluated with computer assisted technology. CERTIFIED CONTROL SYSTEMS TECHNICIAN: SEE COMMENT 2016 11:20 AM CDT [facility] Comment: TMK, CT(ASCP) CT screening location: [place] [address] [address] [place] [address] REVIEW CERTIFIED CONTROL SYSTEMS TECHNICIAN: SEE COMMENT 11/19/2016 11:20 AM CDT [facility] Comment: MLO, CT(ASCP) CT screening location: [place] [address] [address] [place] [address] Genital SWAB OF ENDOCERVIX / Unknown Collection / Unknown 11/16/2016 3:05 PM CDT 11/18/2016 7:08 AM CDT Narrative [facility] - 11/19/2016 11:20 AM CDT Performing Organization Information: Site ID: Name: [facility] Address: [facility] [place] [address] Director: Kelvin Bland MD [facility] Nasim Blas APRN- PATHOLOGY/CYTOLOGY ORD ERABLES Final Result [facility] from Last 3 Months or Most Recently Relevant to Health Maintenance Insurance [facility] BLUE ACCESS/TRUE BLUE PPO Care Teams Freight Car Loader Relationship Specialty Start Date End Date Robin Perla MD [address] [id number] PCP - General Family Practice 11/25/23
--- OUTSIDE RECORDS SUMMARY | 2025-04-07 19:01 | XMS_ITS | Encounter Summary ---
Author Organization [facility] Address [address] [place]: Epic Prelude ADT [place] [address] Care Team Providers Care Production Designer Name Role Phone Robin Perla MD Primary Care Provider [phone] Encounter Details Date Type Department Care Team (Latest Contact Info) Description 04/05/2025 Travel Social History Tobacco Use Types Packs/Day Years [...] worry about transportation for future doctor visits, waste picker medication, etc.? 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
--- OUTSIDE RECORDS SUMMARY | 2025-04-07 19:01 | XMS_ITS | Encounter Summary ---
Author Organization [facility] Address [address] [place] [address] Care Team Providers Care Endless Track Vehicle Supervisor Name Role Phone Robin Perla MD Primary Care Provider [phone] Encounter Details Date Type Department Care Team (Late st Contact Info) Description 04/02/2025 External Device Data [place] ABSTRACTION Provider, Abstract NO ADDRESS ON FILE Social History Tobacco Use Types Packs/Day Years Used Date Smoking Tobacco: Never Smokeless Tobacco: Never Alcohol Use Standard Drinks/Week Comments No 0 (1 standard drink = 0.6 oz pur e alcohol) Comments No Sex and Gender Information Value Date Recorded Sex Assigned at Not on file 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
--- NOTE | 2025-04-07 19:27 | USR_ITS ---
PROCEDURE INFORMATION: Exam: US Pelvis, Transvaginal, Non-Obstetric Exam date and time: 04/07/2025 9:29 PM Age: 29 years old Clinical indication: Other: Vag bleeding; Prior surgery; Surgery date: 6+ months; Surgery type: Unsure of dates but patient states he had a cyst removed from the right ovary and is unsure if they removed her RT ovary as well. ; Additional info: Pelvic pain, vag bleeding TECHNIQUE: Imaging protocol: Real-time transvaginal pelvic (non-obstetric) ultrasound with image documentation. Transvaginal imaging was used for better evaluation of the endometrium, adnexa, and/or cervix. COMPARISON: US transvaginal [id number] 04/03/2025 3:20 PM FINDINGS: Uterus: Nabothian cysts in the cervix. Right ovary/adnexa: Right ovary not visualized. Left ovary/adnexa: The left ovary measures 4.3 x 5.0 x 4.6 cm. Normal flow to the left ovary. Hemorrhagic cyst in the left ovary similar to prior measuring up to 5.1 cm. Urinary bladder: Urinary bladder is limited. Intraperitoneal space: Trace pelvic fluid in the cul-de-sac. US/US transvaginal [id number] IMPRESSION: 1. The left ovary measures 4.3 x 5.0 x 4.6 cm. Normal flow to the left ovary. Hemorrhagic cyst in the left ovary similar to prior measuring up to 5.1 cm. 2. Trace pelvic fluid in the cul-de-sac.
[2025-04-07 19:54] LABS: Hematocrit 39.5 % (36-47); Hemoglobin 12.90 g/dL (11.27-16.99); Mean Corpuscular HGB Conc 32.7 g/dL (30-55); Mean Corpuscular Hemoglobin 28.0 pg (27-33); Mean Corpuscular Volume 85.7 fl (85-98); Nucleated Red Blood Cells % 0 %; Platelet Count 272 10^3/cmm (157-399); Red Blood Count 4.61 10^6/uL (3.85-5.65); White Blood Count 8.72 10^3/uL (3.29-11.43)
--- NOTE | 2025-04-07 19:55 | ED_ITS ---
Documented by User: LUNA Gutierrez 04/07/25 22:30 HPI - Female Genitourinary 2 General: Chief complaint: Vaginal Bleeding Stated complaint: abd pain heavy bleeding Arnie sent in Time Seen by Provider: 04/07/25 19:51 Source: patient Mode of arrival: ambulatory Limitations: no limitations History of Present Illness: Patient is a 29-year-old female here with complaints of pain and bleeding related to a left hemorrhagic ovarian cyst. Patient was seen here in the emergency department on 04/03 and diagnosed with a large left ovarian cyst. She subsequently followed up with Dr. Gaitan on 04/04 who had scheduled her for surgery. She states this is scheduled for tomorrow morning. She states yesterday she went to [facility] ED secondary to discomfort and was given pain/nausea medications. She was subsequently discharged home with plan for surgery with Dr. Gaitan. Patient states today she began noticing heavy bleeding-quantifies is approximately a pad every 1-2 hours. She reportedly spoke to Dr. Gaitan who recommended coming to the emergency department for evaluation. Vital signs are stable upon arrival. She does appear uncomfortable. MD elicited complaint: pelvic pain and other (vaginal bleeding) Onset (ago): day(s) Severity: moderate Female Urogenital Radiation: LLQ Quality of pain: sharp Consistency: constant Vaginal discharge: none Vaginal bleeding: heavy Exacerbating factors: none Relieving factors: none Associated symptoms: Reports no associated symptoms; Deny abdominal pain, headache(s) or nausea Treatment prior to arrival: none Patient : No Related Data Home Medications ?Medication ?Instructions ?Recorded ?Confirmed sertraline 100 mg tablet 100 mg PO QPM 04/03/2504/04 Previous Rx's ?Medication ?Instructions ?Recorded hydrocodone 5 mg-acetaminophen 325 1 tab PO Q8H PRN pa in #15 tabs 04/03/25 mg tablet ondansetron 4 mg disintegrating 4 mg PO TID PRN nausea and 04/03/25 tablet vomiting #30 tabs Allergies Allergy/AdvReac Type Severity Reaction Status Date / Time Sulfa (Sulfonamide Allergy Unknown Verified 04/04/25 11:07 Antibiotics) Review of Systems 2 Const: Denies: fever(s), chills, body aches, fatigue or malaise Card: Denies: chest pain Resp: Denies: dyspnea GI: Denies: abdominal pain, nausea, vomiting or change in bowel habits : Reports: vaginal bleeding and pelvic pain; Denies: flank pain or dysuria Musc: Denies: back pain Neuro: Denies: headache(s), difficulty walking or dizziness PFSH ED 2 PFSH: Family History Father Heart disease Mother Heart disease Hypertension Diabetes Thyroid disease Grandmother Hypertension Diabetes Thyroid disease Grandfather Heart disease Hypertension Social History Smoking and tobacco/nicotine status: never used tobacco/nicotine Physical Exam 2 Const: COMMON NORMALS: patient oriented x3, no limitations, alert and well nourished GENERAL APPEARANCE: cooperative and in distress (appears uncomfortable secondary to pain) NUTRITIONAL APPEARANCE: obese morbidly obese (BMI 43.2) Resp: COMMON NORMALS: normal respiratory effort and clear to auscultation bilaterally AUSCULTATION: clear to auscultation bilaterally Cardio: COMMON NORMALS: regular rate and regular rhythm RATE: regular rate RHYTHM: regular rhythm GI: COMMON NORMALS: Normal to inspection, nondistended, normoactive bowel sounds present and Soft to palpation INSPECTION: Yes normal to inspection AUSCULTATION: Yes normoactive bowel sounds PALPATION: Yes Soft to palpation and Yes Tenderness to palpation present (GI) (LLQ/L pelvis) : COMMON NORMALS: Yes no CVA tenderness BLADDER/KIDNEY EXAM: Yes no CVA tenderness Back/Pelvis: COMMON NORMALS: no CVA tenderness Extremity: GENERAL: Yes normal exam except as noted Neuro: TARIQ COMA SCALE: document GCS findings [place] coma scale eye opening: Spontaneous Tariq coma scale verbal response: Orientated [place] coma scale motor response: Obey commands Tariq coma scale total score: 15 COMMON NORMALS: patient oriented x3, moves all extremities, no focal motor deficits and no sensory deficits noted SENSORIUM/ORIENTATION: Yes alert Course 2 Vital Signs: Vital signs: Vital Signs Temperature 98.1 F 04/07/25 19:11 Pulse Rate 83 04/07/25 22:05 Respiratory Rate 17 04/07/25 19:11 Blood Pressure 156/62 04/07/25 22:05 Pulse Oximetry 97 04/07/25 22:03 Oxygen Delivery Me thod Room Air 04/07/25 22:03 MDM - Female Medical Decision Making Patient here with concerns of continued pain and bleeding possibly related to her known left hemorrhagic ovarian cyst. She is hemodynamically stable. Her hemoglobin on 04/03 was 13.4. Today (4 days later) is 12.9 which is reassuring. She has had multiple emergency department visits secondary to discomfort. She is planned for surgery with Dr. Gaitan in the morning. I did speak to him with recommendation to admit her to [facility] overnight to L&D for pain control and he will consult on her and plan for her surgery in the morning. Medical Records I reviewed the patient's medical records. Lab Data I reviewed the patient's lab results. 04/07/25 19:47 04/07/25 19:47 Radiology Impressions Transvaginal US 04/07/25 19: IMPRESSION: 1. The left ovary measures 4.3 x 5.0 x 4.6 cm. Normal flow to the left ovary. Hemorrhagic cyst in the left ovary similar to prior measuring up to 5.1 cm. 2. Trace pelvic fluid in the cul-de-sac. Laboratory Results WBC 8.72 10^3/uL (3.29-11.43) 04/07/25 19:47 RBC 4.61 10^6/uL (3.85-5.65) 04/07/25 19:47 Hgb 12.90 g/dL (11.27-16.99) 04/07/25 19:47 Hct 39.5 % (36-47) 04/07/25 19:47 MCV 85.7 fl (85-98) 04/07/25 19:47 MCH 28.0 pg (27-33) 04/07/25 19:47 MCHC 32.7 g/dL (30-55) 04/07/25 19:47 RDW 13.0 % (12.1-15.1) 04/07/25 19:47 Plt Count 272 10^3/cmm (157-399) 04/07/25 19:47 MPV 9.6 fL (7.4-10.4) 04/07/25 19:47 Neut % (Auto) 58.5 % 04/07/25 19:47 Lymph % (Auto) 33.1 % 04/07/25 19:47 [place] % (Auto) 6.3 % 04/07/25 19:47 Eos % (Auto) 1.6 % 04/07/25 19:47 Baso % (Auto) 0.3 % 04/07/25 19:47 Neut # (Auto) 5.09 10^3/uL (1.8-7.7) 04/07/25 19:47 Lymph # (Auto) 2.9 10^3/uL (0.8-4.8) 04/07/25 19:47 [place] # (Auto) 0.6 10^3/uL (0.2-0.9) 04/07/25 19:47 Eos # (Auto) 0.1 10^3/uL (0.0-0.8) 04/07/25 19:47 Baso # (Auto) 0.0 10^3/uL (0.0-0.1) 04/07/25 19:47 Nucleated RBC % (auto) 0 % 04/07/25 19:47 Nucleated RBCs # 0.0 /100WBC 04/07/25 19:47 PT 13.10 SECONDS (12.1-14.9) 04/07/25 19:47 INR 0.92 (0.8-1.2) 04/07/25 19:47 Sodium 138 mmol/L (136-145) 04/07/25 19:47 Potassium 3.5 mmol/L (3.5-5.1) 04/07/25 19:47 Chloride 102 mmol/L (98-107) 04/07/25 19:47 Carbon Dioxide 22 mmol/L (22-29) 04/07/25 19:47 Anion Gap 17.5 (5-19) 04/07/25 19:47 BUN 13 mg/dL (6-20) 04/07/25 19:47 Creatinine 0.5 mg/dL (0.5-0.9) 04/07/25 19:47 GFR Calculation 143.9 mL/min (90-130) H 04/07/25 19:47 Glucose 99 mg/dL (65-115) 04/07/25 19:47 Calculated Osmolality 286 mOsm/kg (285-295) 04/07/25 19:47 Calcium 8.7 mg/dL (8.5-10.5) 04/07/25 19:47 Total Bilirubin 0.3 mg/dL (0.15-1.2) 04/07/25 19:47 AST 15 U/L (0-32) 04/07/25 19:47 ALT 18 U/L (0-33) 04/07/25 19:47 Alkaline Phosphatase 56 U/L (35-105) 04/07/25 19:47 Total Protein 7.8 g/dL (6.6-8.7) 04/07/25 19:47 Albumin 4.3 g/dL (3.5-5.2) 04/07/25 19: Globulin 3.5 g/dL (1.3-4.6) 04/07/25 19:47 Lipase 45 U/L (13-60) 04/07/25 19:47 Ser , Semi-Qnt < 1.00 mIU/mL 04/07/25: Urine Color Red (Yellow) A 04/07/25: Urine Appearance Slightly cloudy (CLEAR) 04/07/25: Urine pH 6 (5-7) 04/07/25: Ur Specific [place] 1.015 (1.005-1.030) 04/07/25: Urine Protein 2+ (Negative) H 04/07/25: Urine Glucose (UA) Norm (Normal) 04/07/25: Urine Ketones Negative (Negative) 04/07/25: Urine Blood 3+ (Negative) H 04/07/25: Urine Nitrate Positive (Negative) A 04/07/25: Urine Bilirubin Neg (Negative) 04/07/25: Urine Urobilinogen Norm mg/dL (Negative) 04/07/25: Ur Leukocyte Esterase 1+ (Negative) H 04/07/25 21: Urine RBC >100 /hpf (0-2) H 04/07/25 21: Urine WBC 10-15 /hpf (0-5) H 04/07/25 21: Ur Squamous Epith Cells 3-5 /hpf (0-5) 04/07/25: Amorphous Sediment Not Reportable 04/07/25 21: Urine Bacteria 4+ /hpf (NONE) H 04/07/25 21: Blood Type A Positive 04/07/25 19:47 Rho(D) Type Rh positive 04/07/25:47 Antibody Screen Negative 04/07/25 19:47 XR interpretation done by ED provider, pending radiology final review (per Arnav-cyst appears stable-no large fluid collections seen) Discharge Plan Discharge Patient Disposition: Placed in Observation Clinical Impression: Hemorrhagic cyst of left ovary Coding Level of Care Code ED Cloud Systems Administrator for Chg Fwd Documented by User: Adonis Magdaleno, 04/07/25 22:45 HPI - Female Genitourinary 2 General: Chief complaint: Vaginal Bleeding Stated complaint: abd pain heavy bleeding Gaitan sent in Time Seen by Provider: 04/07/25 19:51 Related Data Home Medications ?Medication ?Instructions ?Recorded ?Confirmed sertraline 100 mg tablet 100 mg PO QPM 04/03/2504/04 Previous Rx's ?Medication ?Instructions ?Recorded hydrocodone 5 mg-acetaminophen 325 1 tab PO Q8H PRN pa in #15 tabs 04/03/25 mg tablet ondansetron 4 mg disintegrating 4 mg PO TID PRN nausea and 04/03/25 tablet vomiting #30 tabs Allergies Allergy/AdvReac Type Severity Reaction Status Date / Time Sulfa (Sulfonamide Allergy Unknown Verified 04/04/25 11:07 Antibiotics) PFSH ED 2 PFSH: Family History Father Heart disease Mother Heart disease Hypertension Diabetes Thyroid disease Grandmother Hypertension Diabetes Thyroid disease Grandfather Heart disease Hypertension Social History Smoking and tobacco/nicotine status: never used tobacco/nicotine Physical Exam 2 Neuro: TARIQ COMA SCALE: document GCS findings [place] coma scale total score: 15 Course 2 Vital Signs: Vital signs: Vital Signs Temperature 98.1 F 04/07/25 19:11 Pulse Rate 83 04/07/25 22:05 Respiratory Rate 17 04/07/25 19:11 Blood Pressure 156/62 04/07/25 22:05 Pulse Oximetry 97 04/07/25 22:03 Oxygen Delivery Me thod Room Air 10/05/25 22:03 MDM - Female Medical Decision Making Patient here with concerns of continued pain and bleeding possibly related to her known left hemorrhagic ovarian cyst. She is hemodynamically stable. Her hemoglobin on 04/03 was 13.4. Today (4 days later) is 12.9 which is reassuring. She has had multiple emergency department visits secondary to discomfort. She is planned for surgery with Dr. Gaitan in the morning. I did speak to him with recommendation to admit her to [facility] overnight to L&D for pain control and he will consult on her and plan for her surgery in the morning... Patient was originally seen by Mrs. Grover?BISHOP Salvador. I agree with her history, evaluation, and management. Admission orders written for observation on L&D. Lab Data 04/07/25 19:47 04/07/25 19:47 Radiology Impressions Transvaginal US 04/07/25 19:27 IMPRESSION: 1. The left ovary measures 4.3 x 5.0 x 4.6 cm. Normal flow to the left ovary. Hemorrhagic cyst in the left ovary similar to prior measuring up to 5.1 cm. 2. Trace pelvic fluid in the cul-de-sac. Laboratory Results WBC 8.72 10^3/uL (3.29-11.43) 04/07/25 19:47 RBC 4.61 10^6/uL (3.85-5.65) 04/07/25 19:47 Hgb 12.90 g/dL (11.27-16.99) 04/07/25 19:47 Hct 39.5 % (36-47) 04/07/25 19:47 MCV 85.7 fl (85-98) 04/07/25 19:47 MCH 28.0 pg (27-33) 04/07/25 19:47 MCHC 32.7 g/dL (30-55) 04/07/25 19:47 RDW 13.0 % (12.1-15.1) 04/07/25 19:47 Plt Count 272 10^3/cmm (157-399) 04/07/25 19:47 MPV 9.6 fL (7.4-10.4) 04/07/25 19:47 Neut % (Auto) 58.5 % 04/07/25 19:47 Lymph % (Auto) 33.1 % 04/07/25 19:47 [place] % (Auto) 6.3 % 04/07/25 19:47 Eos % (Auto) 1.6 % 04/07/25 19:47 Baso % (Auto) 0.3 % 04/07/25 19:47 Neut # (Auto) 5.09 10^3/uL (1.8-7.7) 04/07/25 19:47 Lymph # (Auto) 2.9 10^3/uL (0.8-4.8) 04/07/25 19:47 [place] # (Auto) 0.6 10^3/uL (0.2-0.9) 04/07/25 19:47 Eos # (Auto) 0.1 10^3/uL (0.0-0.8) 04/07/25 19:47 Baso # (Auto) 0.0 10^3/uL (0.0-0.1) 04/07/25 19:47 Nucleated RBC % (auto) 0 % 04/07/25 19:47 Nucleated RBCs # 0.0 /100WBC 04/07/25 19:47 PT 13.10 SECONDS (12.1-14.9) 04/07/25 19:47 INR 0.92 (0.8-1.2) 04/07/25 19:47 Sodium 138 mmol/L (136-145) 04/07/25 19:47 Potassium 3.5 mmol/L (3.5-5.1) 04/07/25 19:47 Chloride 102 mmol/L (98-107) 04/07/25 19:47 Carbon Dioxide 22 mmol/L (22-29) 04/07/25 19:47 Anion Gap 17.5 (5-19) 04/07/25 19:47 BUN 13 mg/dL (6-20) 04/07/25 19:47 Creatinine 0.5 mg/dL (0.5-0.9) 04/07/25 19:47 GFR Calculation 143.9 mL/min (90-130) H 04/07/25 19:47 Glucose 99 mg/dL (65-115) 04/07/25 19:47 Calculated Osmolality 286 mOsm/kg (285-295) 04/07/25 19:47 Calcium 8.7 mg/dL (8.5-10.5) 04/07/25: Total Bilirubin 0.3 mg/dL (0.15-1.2) 04/07/25: AST 15 U/L (0-32) 04/07/25 19: ALT 18 U/L (0-33) 04/07/25: Alkaline Phosphatase 56 U/L (35-105) 04/07/25 19: Total Protein 7.8 g/dL (6.6-8.7) 04/07/25: Albumin 4.3 g/dL (3.5-5.2) 04/07/25: Globulin 3.5 g/dL (1.3-4.6) 04/07/25: Lipase 45 U/L (13-60) 04/07/25: Ser , Semi-Qnt < 1.00 mIU/mL 04/07/25: Urine Color Red (Yellow) A 04/07/25: Urine Appearance Slightly cloudy (CLEAR) 04/07/25: Urine pH 6 (5-7) 04/07/25: Ur Specific [place] 1.015 (1.005-1.030) 04/07/25: Urine Protein 2+ (Negative) H 04/07/25: Urine Glucose (UA) Norm (Normal) 04/07/25: Urine Ketones Negative (Negative) 04/07/25: Urine Blood 3+ (Negative) H 04/07/25: Urine Nitrate Positive (Negative) A 04/07/25: Urine Bilirubin Neg (Negative) 04/07/25: Urine Urobilinogen Norm mg/dL (Negative) 04/07/25: Ur Leukocyte Esterase 1+ (Negative) H 04/07/25: Urine RBC >100 /hpf (0-2) H 04/07/25: Urine WBC 10-15 /hpf (0-5) H 04/07/25: Ur Squamous Epith Cells 3-5 /hpf (0-5) 04/07/25: Amorphous Sediment Not Reportable 04/07/25: Urine Bacteria 4+ /hpf (NONE) H 04/07/25 21:29 Blood Type A Positive 04/07/25 19:47 Rho(D) Type Rh positive 04/07/25 19:47 Antibody Screen Negative 04/07/25 19:47 Discharge Plan Discharge Patient Disposition: Placed in Observation Clinical Impression: Hemorrhagic cyst of left ovary Coding Level of Care Code ED Cloud Systems Administrator for Gela Crowley
[2025-04-07 20:08] LABS: INR 0.92 (0.8-1.2); Prothrombin Time 13.10 SECONDS (12.1-14.9)
[2025-04-07 20:30] LABS: Alanine Aminotransferase 18 U/L (0-33); Albumin Level 4.3 g/dL (3.5-5.2); Alkaline Phosphatase 56 U/L (35-105); Anion Gap 17.5 (5-19); Aspartate Amino Transferase 15 U/L (0-32); Blood Urea Nitrogen 13 mg/dL (6-20); Calcium 8.7 mg/dL (8.5-10.5); Carbon Dioxide 22 mmol/L (22-29); Chloride 102 mmol/L (98-107); Creatinine Clr Calc Pharmacy 194.8502; Globulin 3.5 g/dL (1.3-4.6); Glucose 99 mg/dL (65-115); Lipase 45 U/L (13-60); Osmolality Calculated 286 mOsm/kg (285-295); Potassium 3.5 mmol/L (3.5-5.1); Sodium 138 mmol/L (136-145); Total Protein 7.8 g/dL (6.6-8.7)
[2025-04-07] MEDS: ondansetron 2 mg/ML SDV 2 mL 4 MG IVP (20:31)
[2025-04-07] MEDS: HYDROmorphone 0.5 MG/0.5 ML INJ 1 MG IVP (20:31)
[2025-04-07 22:20] LABS: Glucose Urine UA Norm (Normal); Specific Gravity, Urine 1.015 (1.005-1.030)
[2025-04-07 22:21] LABS: Add Urine Microscopic? YES; Nitrate Urine Positive (Negative); UA Manual Slide Review YES
[2025-04-08] VITALS (13 sets, daily range): BP systolic 105–167; BP diastolic 58–98; PULSE 84–114; RESP 15–19; TEMP 36.5–36.8; O2SAT 92–100
[2025-04-08] MEDS: HYDROmorphone 0.5 MG/0.5 ML INJ IVP ×2 (00:42→04:42)
--- NOTE | 2025-04-08 06:51 | W.PM.OPSUD ---
Surgery/Procedure H&P Update DATE OF PROCEDURE: April 08, 2025 DATE H&P PERFORMED: 04/08/25 H&P UPDATE INFORMATION: I have reviewed H&P completed within last 30 days, I have examined patient prior to procedure and No changes to prior documentation PLANNED PROCEDURE: Operation Date: 04/08/25 08:55 Proposed Procedures p Laparoscopy 42502 [id number] N93.12(Not Applicable) - Rajesh Gaitan MD s POSSIBLE Cystectomy(Not Applicable) - Rajesh Gaitan MD s POSSIBLE Oophorectomy(Not Applicable) - Rajesh Gaitan MD s POSSIBLE Exploratory Laparotomy(Not Applicable) - Rajesh Gaitan MD
--- NOTE | 2025-04-08 09:25 | PM.OP ---
Operative Report Date of procedure: April 08, 2025 Pre-op diagnosis: Pelvic pain left ovarian cyst Post-op diagnosis: Pelvic pain 4 cm left ovarian cyst Post-op findings: normal uterus surgically absent right ovary pelvic adhesions bilateral fallopian tubes normal-appearing but with pelvic adhesions left ovary normal with presence of 4 cm ovarian cyst Procedure done: Laparoscopy Lysis of adhesions Laparoscopic left cystectomy Implants: none Specimens removed/disposition: left ovarian cyst Surgeon: Rajesh Gaitan MD Anesthesia: General Estimated blood loss (mL): 5 Complications: none Findings: see above Condition: stable Disposition: PACU Brief History: 29 y.o. with pelvic pain and left ovarian cyst Procedure: Informed consent obtained. The patient was taken to the OR and placed supine on the table. General endotracheal anesthesia was given. The abdomen was prepped and draped in usual fashion. A 5 mm subumbilical skin incision was made. A Veress needle was placed. After adequate pneumoperitoneum was achieved, a laparoscopic trocar with sheath was inserted into the peritoneal cavity under direct vision with the laparoscope. Two separate 5 mm incisions were made in the right and left mid-abdominal quadrants under direct visualization to accommodate additional trocars and sheaths. The pelvis was explored with the laparoscope. The uterus was normal. There were scattered pelvic adhesions. The right ovary was surgically absent. Both fallopian tubes appear normal but there were surrounding adhesions. The left ovary was normal with a 4 cm left ovarian cyst. Some adhesions were lysed. The left ovarian cyst wall was opened and the capsule removed. The capsule was dissected into smaller portions with the Ligasure device. The cyst wall was removed via the laparoscopic sheath. No abnormalities were seen in the utero-ovarian ligaments, broad ligaments, anterior cul-de-sac and pelvic side-nielson. No bleeding was seen All instruments were then removed from the abdominal cavity after the pneumoperitoneum was allowed to escape. The skin incisions were closed with 4-O monocryl. Dermabond was applied. The patient was then awakened and taken to the recovery room in good condition. Postop condition stable. EBL 5 cc. There were no complications. Sponge and instrument counts were correct x two
--- NOTE | 2025-04-08 09:41 | ANE.PACU2 ---
Inpatient post-anesthesia follow up: Airway intact: Yes Vital signs: Temperature 98.0 F Pulse Rate [Orthos tatic 83 Standing] Pulse Rate [Orthos tatic 83 Sitting] Pulse Rate [Orthos tatic Lying] 79 Pulse Rate 84 Respiratory Rate 16 Blood Pressure [Or thostatic 156/62 Standing Left Arm] Blood Pressure [Or thostatic 158/88 Sitting Left Arm] Blood Pressure [Or thostatic 138/81 Lying Left Arm] Blood Pressure 135/74 Pulse Oximetry 99 Oxygen Delivery Me thod Room Air Oxygen Flow Rate 3 Fraction of Inspir ed Oxygen Hydration adequate: Yes Nausea and vomiting: No Pain level: 1 Mental status: Baseline
[2025-04-08] MEDS: ondansetron 2 mg/ML SDV 2 mL 4 MG (09:43)
[2025-04-08] MEDS: oxyCODONE-APAP 5-325 mg Tablet 2 TAB PO (12:39)
== END 2025-04-08 13:06 | disposition home or self-care (01) ==
LOC: ER 22:30 → OBGYN 23:08
PROVIDERS: Emergency Medicine; Admitting Provider Obstetrics & Gynecology; Emergency Provider Physician Assistant; Visit Provider Obstetrics & Gynecology
PROC: (CPT 49320; principal; 2025-04-08 08:55)
PROC: (CPT 58662; 2025-04-08 08:55)
PROC: (CPT 58662; 2025-04-08 08:55)
DX: N83.202 Unspecified ovarian cyst, left side (principal)
CPT/HCPCS: 58662; 36415; 76830; 80053; 81001; 83690; 84702; 85025; 85610; 86850; 86900; 87086; 88304; 96374; 96375; 96376; 99285; G0378; J0330; J1100; J1171; J1200; J2250; J2405; J2704; J3010; J3490; J7030; J9999